=== PATIENT | female | born 1990 | race American Indian/Alaskan Native ===

== ENCOUNTER 2018-10-11 00:23 | Emergency (ER) | payer BC ==
[2018-10-11 00:29] VITALS: BP 117/82
[2018-10-11] MEDS ORDERED: DILAUDID IV ONE (01:09)
[2018-10-11 01:15] LABS: Hemoglobin 13.3 gm/dl (10.1-14.3); Mean Corpuscular HGB Conc 34 % (30-34); Mean Corpuscular Volume 91 fl (79-97); Platelet Count 396 K/mm3 (140-440); Red Blood Count 4.29 M/mm3 (3.65-5.03); Red Cell Distribution Width 14.1 % (13.2-15.2)
--- NOTE | 2018-10-11 01:15 | Emergency Department Report ---
ED General Adult HPI - General Chief complaint: Abdominal Pain Stated complaint: ABD PAIN Time Seen by Provider: 10/11/18 00:50 Source: patient, RN notes reviewed, old records reviewed Mode of arrival: Ambulatory Limitations: No Limitations - History of Present Illness Initial comments: This is a 27-year-old female. The patient is not known to this provider previously. Her past medical history includes chronic umbilical hernia, ascites, endometriosis. She reports that she saw her private outpatient [employer] doctor a few days ago, and was referred to an outpatient endometriosis specialist. The patient reports that she is taking multiple control tablets for her endometriosis, unfortunately, without much success for symptom control. She reports endometriosis tissue has migrated into her chronic umbilical hernia. She presents today with an exacerbation of her chronic endometriosis pain. She has pain in her lower back, and lower abdominal region. There is positive nausea but no vomiting. There are no urinary symptoms. No fevers. No cough. She reports that typically her symptoms are exacerbated with tactile heat, and occasionally strenuous physical labor. She reports that she has a do a lot of heavy lifting yesterday at work. She also reports a lot of anxiety. -: Gradual, hour(s) Location: back, abdomen Quality: aching Consistency: other Improves with: medication, rest Worsens with: movement, other - Related Data Previous Rx's Medication Instructions Recorded Last Taken Type Ondansetron [Zofran ODT TAB] 4 mg PO Q8HR PRN #10 tab.rapdis 10/11/18 Unknown Rx oxyCODONE /ACETAMINOPHEN [Percocet 1 tab PO Q6HR PRN #10 tablet 10/11/18 Unknown Rx 5/325 mg] Allergies Allergy/AdvReac Type Severity Reaction Status Date / Time No Known Allergies Allergy Verified 03/12/18 12:46 ED Review of Systems ROS: Stated complaint: ABD PAIN Other details as noted in HPI Constitutional: denies: fever Eyes: denies: eye discharge ENT: denies: epistaxis Respiratory: denies: cough Cardiovascular: denies: chest pain Gastrointestinal: abdominal pain Genitourinary: denies: dysuria Musculoskeletal: back pain Skin: denies: lesions Neurological: weakness Psychiatric: anxiety ED Past Medical Hx - Past Medical History Previous Medical History?: Yes Additional medical history: endometriosis,umbilical hernia, Ascites - Surgical History Past Surgical History?: Yes Additional Surgical History: right ovary and fallopian tube, parasenthesis - Social History Smoking Status: Never Smoker Substance Use Type: None - Medications Home Medications: Home Medications Medication Instructions Recorded Confirmed Last Taken Type Ondansetron [Zofran ODT TAB] 4 mg PO Q8HR PRN #10 tab.rapdis 10/11/18 Unknown Rx oxyCODONE /ACETAMINOPHEN [Percocet 1 tab PO Q6HR PRN #10 tablet 10/11/18 Unknown Rx 5/325 mg] ED Physical Exam - General Limitations: No Limitations General appearance: alert, anxious, in distress - Head Head exam: Present: atraumatic, normocephalic - Eye Eye exam: Present: normal appearance, EOMI. Absent: nystagmus - ENT ENT exam: Present: normal exam, normal orophraynx, mucous membranes moist, normal external ear exam - Neck Neck exam: Present: normal inspection, full ROM. Absent: tenderness, meningismus - Respiratory Respiratory exam: Present: normal lung sounds bilaterally. Absent: respiratory distress - Cardiovascular Cardiovascular Exam: Present: regular rate, normal rhythm, normal heart sounds. Absent: bradycardia, tachycardia, irregular rhythm, systolic murmur, diastolic murmur, rubs, gallop - GI/Abdominal GI/Abdominal exam: Present: soft, distended (ascites noted. The patient states this is chronic.), tenderness, hernia (there is an umbilical hernia. There is indurated tissue which the patient states is chronic and the umbilical hernia. There is no redness, pus or streaking.). Absent: guarding, rebound, rigid, pulsatile mass - Extremities Exam Extremities exam: Present: normal inspection, full ROM, other (2+ pulses noted in the bilateral upper, lower extremities. Compartments soft. No long bony tenderness. The pelvis is stable.). Absent: pedal edema, joint swelling, calf tenderness - Back Exam Back exam: Present: normal inspection, full ROM. Absent: tenderness, CVA tenderness (R), CVA tenderness (L), paraspinal tenderness, vertebral tenderness - Neurological Exam Neurological exam: Present: alert, other (Extraocular movements intact. Tongue midline. No facial droop. Facial sensation intact to light touch in the V1, V2, V3 distribution bilaterally. 5 and 5 strength in 4 extremities.. Sensation is intact to light touch in 4 extremities.). Absent: motor sensory deficit - Psychiatric Psychiatric exam: Present: anxious - Skin Skin exam: Present: warm, other (hyperpigmented tissue noted in the umbilical region. Patient states this is chronic.) ED Course Vital Signs 10/11/18 10/11/18 10/11/18 00:28 00:42 01:15 Temperature 98.9 F 97.9 F Pulse Rate 112 H 88 Respiratory 20 18 22 Rate Blood Pressure 117/82 117/82 O2 Sat by Pulse 95 Oximetry 10/11/18 10/11/18 10/11/18 01:29 01:31 01:45 Temperature Pulse Rate 99 H 83 Respiratory 18 11 L 18 Rate Blood Pressure O2 Sat by Pulse 100 99 Oximetry 10/11/18 10/11/18 10/11/18 02:01 02:15 02:31 Temperature Pulse Rate 98 H 86 87 Respiratory 25 H 23 Rate Blood Pressure O2 Sat by Pulse 96 99 99 Oximetry - Reevaluation(s) Reevaluation #1: 10/11/18 02:10 Differential diagnosis, including not limited to: Endometriosis pain, chronic umbilical hernia, chronic ascites, obstruction Assessment and plan: 27-year-old female with acute on chronic endometriosis associated pain. The patient is afebrile with reassuring vital signs. She states her symptoms today are consistent with prior exacerbations of endometriosis pain. She has follow-up with an outpatient endometriosis specialist. Laboratory studies reviewed. CT scan of the abdomen and pelvis performed and interpretation is pending. We will reassess after data points have resulted. Reevaluation #2: 10/11/18 02:56 CT scan of the abdomen and pelvis reviewed and appreciated. The patient is reassessed. She states she feels 100% better. Do not suspect spontaneous bacterial peritonitis given lack of fever, leukocytosis, lack of diffuse abdominal tenderness, and the patient's offer history. Patient states she is reliable to follow-up with her outpatient endometriosis specialist. We will discharge the patient at this time. She is watching videos on her cell telephone, and endorses complete resolution of her symptoms, and readiness for discharge. ED Medical Decision Making - Lab Data Result diagrams: 10/11/18 00:48 10/11/18 00:48 Vital Signs 10/11/18 10/11/18 10/11/18 00:28 00:42 01:29 Temperature 98.9 F 97.9 F Pulse Rate 112 H Respiratory 20 18 18 Rate Blood Pressure 117/82 117/82 O2 Sat by Pulse 95 Oximetry Lab Results 10/11/18 10/11/18 10/11/18 Range/Units 00:48 00:48 00:48 WBC 5.1 (4.5-11.0) K/mm3 RBC 4.29 (3.65-5.03) M/mm3 Hgb 13.3 (10.1-14.3) gm/dl Hct 39.0 (30.3-42.9) % MCV 91 (79-97) fl MCH 31 (28-32) pg MCHC 34 (30-34) % RDW 14.1 (13.2-15.2) % Plt Count 396 (140-440) K/mm3 PT (12.2-14.9) Sec. INR (0.87-1.13) Sodium 137 (137-145) mmol/L Potassium 3.7 (3.6-5.0) mmol/L Chloride 102.0 (98-107) mmol/L Carbon Dioxide 22 (22-30) mmol/L Anion Gap 17 mmol/L BUN 13 (7-17) mg/dL Creatinine 0.6 L (0.7-1.2) mg/dL Estimated GFR > 60 ml/min BUN/Creatinine Ratio 22 % Glucose 79 (65-100) mg/dL Calcium 9.8 (8.4-10.2) mg/dL Magnesium 2.10 (1.7-2.3) mg/dL Total Bilirubin 0.40 (0.1-1.2) mg/dL AST 18 (5-40) units/L ALT 23 (7-56) units/L Alkaline Phosphatase 54 (35-129) units/L Total Creatine Kinase 96 (30-135) units/L Total Protein 8.3 H (6.3-8.2) g/dL Albumin 4.7 (3.9-5) g/dL Albumin/Globulin Ratio 1.3 % HCG, Quant (0-4) mIU/mL 10/11/18 10/11/18 Range/Units 00:48 01:13 WBC (4.5-11.0) K/mm3 RBC (3.65-5.03) M/mm3 Hgb (10.1-14.3) gm/dl Hct (30.3-42.9) % MCV (79-97) fl MCH (28-32) pg MCHC (30-34) % RDW (13.2-15.2) % Plt Count (140-440) K/mm3 PT 12.8 (12.2-14.9) Sec. INR 0.99 (0.87-1.13) Sodium (137-145) mmol/L Potassium (3.6-5.0) mmol/L Chloride (98-107) mmol/L Carbon Dioxide (22-30) mmol/L Anion Gap mmol/L BUN (7-17) mg/dL Creatinine (0.7-1.2) mg/dL Estimated GFR ml/min BUN/Creatinine Ratio % Glucose (65-100) mg/dL Calcium (8.4-10.2) mg/dL Magnesium (1.7-2.3) mg/dL Total Bilirubin (0.1-1.2) mg/dL AST (5-40) units/L ALT (7-56) units/L Alkaline Phosphatase (35-129) units/L Total Creatine Kinase (30-135) units/L Total Protein (6.3-8.2) g/dL Albumin (3.9-5) g/dL Albumin/Globulin Ratio % HCG, Quant < 2 (0-4) mIU/mL - Radiology Data Radiology results: pending, report reviewed, [place] [address] Cat Scan Report Signed Patient: JEANNE NOLASCO MR#: [id number] : 1990 Acct:[id number] Age/Sex: 27 / F ADM Date: 10/11/18 Loc: ED Attending Dr: Ordering Physician: DEEP HUMPHREY MD Date of Service: 10/11/18 Procedure(s): CT abdomen pelvis w con Accession Number(s): [id number] cc: DEEP HUMPHREY MD CT abdomen pelvis w con INDICATION: abd pain, endometriosis pain. TECHNIQUE: All CT scans at this location are performed using the following dose modulation technique: Automated exposure control. CONTRAST: Omnipaque 300, 100 cc IV injection. COMPARISON: None available. CT abdomen: Evaluation the parenchymal organs demonstrates diffuse fatty infiltration of the liver. The remaining parenchymal organs are unremarkable. There is severe ascites. The bowel is not dilated or thickened. Focal soft tissue thickening is seen along the superior aspect of the umbilicus measuring 3.7 x 1.9 cm (series 2, image 134). CT PELVIS: Negative for pelvic mass, fluid or inflammation. Unusual linear soft tissue and adjacent soft tissue thickening is seen adjacent to the left adnexa. IMPRESSION: 1. Severe ascites. 2. Fatty liver. 3. Soft tissue thickening at the umbilicus and unusual soft tissue the left pelvis are nonspecific but could represent endometrial implants. Signer Name: Asif Mccabe MD Signed: 10/11/2018 2:44 AM Workstation Name: [id number] Transcribed By: KRISHNA Dictated By: Asif Mccabe MD Electronically Authenticated By: Asif Mccabe MD Signed Date/Time: 10/11/18 0246 Critical care attestation.: If time is entered above; I have spent that time in minutes in the direct care of this critically ill patient, excluding procedure time. ED Disposition Clinical Impression: Endometriosis Ascites Qualifiers: Ascites type: other type Qualified Code(s): R18.8 - Other ascites Disposition: DC-01 TO HOME OR SELFCARE Is pt being admited?: No Does the pt Need Aspirin: No Condition: Stable Instructions: Ascites (ED), Endometriosis (ED) Additional Instructions: Rest, avoid heavy lifting, and avoid strenuous physical activities. Take the pain medication, nausea medication as needed/directed. Follow up with her endometriosis specialist within the next 7-10 days. Follow up with her primary care doctor or beef farmer for abdominal ascites/fluid in the abdominal cavity, within the next 3-4 weeks. Return to the emergency room right away or projectile vomiting, change in mental status, confusion, inability to tolerate liquid feeds, new, worsening or different symptoms not present on the initial emergency room evaluation. Referrals: [facility] [Provider Group] - as needed [facility] [Provider Group] - as needed
[2018-10-11 01:29] LABS: Alanine Aminotransferase 23 units/L (7-56); Albumin 4.7 g/dL (3.9-5); BUN/Creatinine Ratio 22; Blood Urea Nitrogen 13 mg/dL (7-17); Calcium 9.8 mg/dL (8.4-10.2); Hemolysis Index 10
[2018-10-11 01:46] LABS: INR 0.99 (0.87-1.13)
--- NOTE | 2018-10-11 02:49 | Cat Scan Report ---
CT abdomen pelvis w con INDICATION: abd pain, endometriosis pain. TECHNIQUE: All CT scans at this location are performed using the following dose modulation technique: Automated exposure control. CONTRAST: Omnipaque 300, 100 cc IV injection. COMPARISON: None available. CT abdomen: Evaluation the parenchymal organs demonstrates diffuse fatty infiltration of the liver. T he remaining parenchymal organs are unremarkable. There is severe ascites. The bowel is not dilated or thickened. Focal soft tissue thickening is seen along the superior aspect of the umbilicus measuring 3.7 x 1.9 c m (series 2, image 134). CT PELVIS: Negative for pelvic mass, fluid or inflammation. Unusual linear soft tissue and adjacent s oft tissue thickening is seen adjacent to the left adnexa. IMPRESSION: 1. Severe ascites. 2. Fatty liver. 3. Soft tissue thickening at the umbilicus and unusual soft tissue the left pelvis are nonspecific bu t could represent endometrial implants. Signer Name: Asif Mccabe MD Signed: 10/11/2018 2:44 AM Workstation Name: [id number]
== END 2018-10-11 03:39 | disposition home or self-care (01) ==
LOC: ED 00:23
DX: N80.9 Endometriosis, unspecified (principal); R18.8 Other ascites; Z98.890 Other specified postprocedural states; Z79.899 Other long term (current) drug therapy
CPT/HCPCS: 36415; 74177; 80053; 82550; 83735; 84702; 85027; 85610; 96374; 99284; J1170; Q9967

== ENCOUNTER 2018-10-18 00:27 | Inpatient (IN) | payer BC ==
[2018-10-18] MEDS ORDERED: TORADOL IV ONE (02:44)
[2018-10-18] MEDS ORDERED: MORPHINE IV ONE ×2 (02:44→05:14)
[2018-10-18] MEDS ORDERED: ZOFRAN IV ONE ×2 (02:44→05:26)
[2018-10-18 03:46] LABS: Hematocrit 38.6 % (30.3-42.9); Hemoglobin 13.4 gm/dl (10.1-14.3); Mean Corpuscular HGB Conc 35 % (30-34); Mean Corpuscular Volume 90 fl (79-97); Platelet Count 324 K/mm3 (140-440); Red Blood Count 4.29 M/mm3 (3.65-5.03); Red Cell Distribution Width 14.1 % (13.2-15.2)
[2018-10-18 03:52] LABS: Alanine Aminotransferase 14 units/L (7-56); Albumin 4.8 g/dL (3.9-5); BUN/Creatinine Ratio 17; Blood Urea Nitrogen 10 mg/dL (7-17); Calcium 9.6 mg/dL (8.4-10.2); Hemolysis Index 9
[2018-10-18 04:36] LABS: Basophils % (Manual) 0 % (0.0-1.8); Total Cells Counted 100
[2018-10-18 04:37] LABS: Large Platelets 1+; Platelet Estimate Consistent w Auto; RBC Morphology Normal
[2018-10-18 04:48] LABS: Bilirubin,Urine NEG (Negative); Blood,Urine LG (Negative); Color,Urine Yellow (Yellow); Protein,Urine <15 mg/dL mg/dL (Negative); Urobilinogen,Urine < 2.0 mg/dL (<2.0)
[2018-10-18 04:50] LABS: RBC,Urine > 182.0 /HPF (0.0-6.0)
--- NOTE | 2018-10-18 05:05 | Cat Scan Report ---
CT ABDOMEN AND PELVIS WITH CONTRAST INDICATION: MAIN: worsening ascities, pain and bleeding at umbilicus. 100 ML OMNIPAQUE 300. TECHNIQUE: Axial CT images were obtained through the abdomen and pelvis after 100 cc Omnipaque [address] scans at this location are performed using CT dose reduction for ALARA by means of automated exposure control. COMPARISON: None available. FINDINGS: LOWER CHEST: Linear bibasilar scarring, unchanged LIVER: Mild decreased attenuation characteristic for steatosis. GALLBLADDER: No significant abnormality. BILE DUCTS: No significant abnormality. PANCREAS: No significant abnormality. SPLEEN: No significant abnormality. ADRENALS: No significant abnormality. RIGHT KIDNEY and URETER: No significant abnormality. LEFT KIDNEY and URETER: No significant abnormality. STOMACH and SMALL BOWEL: No significant abnormality. COLON: No significant abnormality. APPENDIX: No significant abnormality. PERITONEUM: Massive amount of ascites, unchanged. Focal soft tissue masslike thickening near umbilicu s again measures 3.5 cm transversely image 133, unchanged No free air. No fluid collection. LYMPH NODES: No significant adenopathy. Ill-defined masslike soft tissue beginning near left adnexa r egion within the left hemipelvis measuring 2.4 cm in diameter image 158, unchanged. AORTA and ARTERIES: No significant abnormality. IVC and VEINS: No significant abnormality. URINARY BLADDER: No significant abnormality. REPRODUCTIVE ORGANS: No significant abnormality. ADDITIONAL FINDINGS: None. SKELETAL SYSTEM: No significant abnormality. IMPRESSION: 1. Massive amount of abdominal ascites, unchanged with focal masslike soft tissue thickening in the l eft periumbilical region suggestive for peritoneal carcinomatosis. Paracentesis with cytology is aureliano mmended. 2. Probable left ovarian mass/soft tissue thickening within the left hemipelvis worrisome for ovarian neoplasm, unchanged. Signer Name: Zen Kingston MD Signed: 10/18/2018 5:00 AM Workstation Name: [id number]
[2018-10-18] MEDS ORDERED: ZOFRAN ONE (05:21)
--- NOTE | 2018-10-18 05:31 | Emergency Department Report ---
ED Abdominal Pain HPI - General Chief Complaint: Abdominal Pain Stated Complaint: PELVIC PAIN Time Seen by Provider: 10/18/18 02:24 Source: patient Mode of arrival: Ambulatory Limitations: No Limitations - History of Present Illness Initial Comments: Patient is a 27-year-old female with a past medical history of probable endometriosis still undergoing treatment and diagnostic tests who states that she also has had multiple paracenteses performed secondary to ascites. Patient states she feels as though she is at the point where she needs to have fluid drained again. Patient says some increased abdominal distention to the point where her umbilicus is more distended and there is a small pinpoint area that is now bleeding. Patient states the pain is 8 out of 10 in severity and is aching and throbbing. She has some shortness of breath and a tight sensation in abdomen. Patient denies fevers chills nausea vomiting at this time . Severity scale (0 -10): 10 - Related Data Previous Rx's Medication Instructions Recorded Last Taken Type Ondansetron [Zofran ODT TAB] 4 mg PO Q8HR PRN #10 tab.rapdis 10/11/18 Unknown Rx oxyCODONE /ACETAMINOPHEN [Percocet 1 tab PO Q6HR PRN #10 tablet 10/11/18 Unknown Rx 5/325 mg] Allergies Allergy/AdvReac Type Severity Reaction Status Date / Time No Known Allergies Allergy Verified 03/12/18 12:46 ED Review of Systems ROS: Stated complaint: PELVIC PAIN Other details as noted in HPI Comment: All other systems reviewed and negative ED Past Medical Hx - Past Medical History Previous Medical History?: Yes Additional medical history: endometriosis,umbilical hernia, Ascites - Surgical History Past Surgical History?: Yes Additional Surgical History: right ovary and fallopian tube, parasenthesis - Social History Smoking Status: Never Smoker - Medications Home Medications: Home Medications Medication Instructions Recorded Confirmed Last Taken Type Ondansetron [Zofran ODT TAB] 4 mg PO Q8HR PRN #10 tab.rapdis 10/11/18 Unknown Rx oxyCODONE /ACETAMINOPHEN [Percocet 1 tab PO Q6HR PRN #10 tablet 10/11/18 Unknown Rx 5/325 mg] ED Physical Exam - General Limitations: No Limitations General appearance: alert, in no apparent distress - Head Head exam: Present: atraumatic, normocephalic - Eye Eye exam: Present: normal appearance - ENT ENT exam: Present: mucous membranes moist - Neck Neck exam: Present: normal inspection - Respiratory Respiratory exam: Present: normal lung sounds bilaterally. Absent: respiratory distress, wheezes, rales, rhonchi, stridor - Cardiovascular Cardiovascular Exam: Present: regular rate, normal rhythm, normal heart sounds. Absent: systolic murmur, diastolic murmur, rubs, gallop - GI/Abdominal GI/Abdominal exam: Present: soft, distended, normal bowel sounds, hernia. Absent: tenderness, guarding, rebound - Extremities Exam Extremities exam: Present: normal inspection - Back Exam Back exam: Present: normal inspection - Neurological Exam Neurological exam: Present: alert, oriented X3 - Psychiatric Psychiatric exam: Present: normal affect, normal mood - Skin Skin exam: Present: warm, dry, intact, normal color. Absent: rash ED Course Vital Signs 10/18/18 10/18/18 10/18/18 01:15 02:20 02:23 Temperature 98.6 F 98.1 F Pulse Rate 84 77 Respiratory 16 26 H Rate Blood Pressure 130/89 Blood Pressure 126/91 [Left] O2 Sat by Pulse 94 99 99 Oximetry 10/18/18 10/18/18 10/18/18 02:30 02:45 03:01 Temperature Pulse Rate 78 81 84 Respiratory 20 13 Rate Blood Pressure 129/90 126/91 126/91 Blood Pressure [Left] O2 Sat by Pulse 100 100 99 Oximetry 10/18/18 10/18/18 10/18/18 03:15 03:30 03:45 Temperature Pulse Rate 76 71 70 Respiratory 12 19 16 Rate Blood Pressure 126/91 120/83 120/83 Blood Pressure [Left] O2 Sat by Pulse 100 98 99 Oximetry 10/18/18 10/18/18 04:01 04:15 Temperature Pulse Rate 71 75 Respiratory 18 18 Rate Blood Pressure 120/83 113/78 Blood Pressure [Left] O2 Sat by Pulse 97 100 Oximetry ED Medical Decision Making - Lab Data Result diagrams: 10/18/18 03:12 10/18/18 03:12 Lab Results 10/18/18 10/18/18 10/18/18 Range/Units 03:12 03:12 03:12 WBC 4.1 L (4.5-11.0) K/mm3 RBC 4.29 (3.65-5.03) M/mm3 Hgb 13.4 (10.1-14.3) gm/dl Hct 38.6 (30.3-42.9) % MCV 90 (79-97) fl MCH 31 (28-32) pg MCHC 35 H (30-34) % RDW 14.1 (13.2-15.2) % Plt Count 324 (140-440) K/mm3 Lymph % (Auto) Freelance Makeup Artist Add Manual Diff Complete Total Counted 100 Seg Neutrophils % Freelance Makeup Artist Seg Neuts % (Manual) 34.0 L (40.0-70.0) % Band Neutrophils % 0 % Lymphocytes % (Manual) 56.0 H (13.4-35.0) % Reactive Lymphs % (Man) 0 % Monocytes % (Manual) 7.0 (0.0-7.3) % Eosinophils % (Manual) 3.0 (0.0-4.3) % Basophils % (Manual) 0 (0.0-1.8) % Metamyelocytes % 0 % Myelocytes % 0 % Promyelocytes % 0 % Blast Cells % 0 % Nucleated RBC % Not Reportable Seg Neutrophils # Man 1.4 L (1.8-7.7) K/mm3 Band Neutrophils # 0.0 K/mm3 Lymphocytes # (Manual) 2.3 (1.2-5.4) K/mm3 Abs React Lymphs (Man) 0.0 K/mm3 Monocytes # (Manual) 0.3 (0.0-0.8) K/mm3 Eosinophils # (Manual) 0.1 (0.0-0.4) K/mm3 Basophils # (Manual) 0.0 (0.0-0.1) K/mm3 Metamyelocytes # 0.0 K/mm3 Myelocytes # 0.0 K/mm3 Promyelocytes # 0.0 K/mm3 Blast Cells # 0.0 K/mm3 WBC Morphology Not Reportable Hypersegmented Neuts Not Reportable Hyposegmented Neuts Not Reportable Hypogranular Neuts Not Reportable Smudge Cells Not Reportable Toxic Granulation Not Reportable Toxic Vacuolation Not Reportable Dohle Bodies Not Reportable Pelger-Huet Anomaly Not Reportable Jorge Luis Rods Not Reportable Platelet Estimate Consistent w auto Clumped Platelets Not Reportable Plt Clumps, EDTA Not Reportable Large Platelets 1+ Giant Platelets Not Reportable Platelet Satelliting Not Reportable Plt Morphology Comment Not Reportable RBC Morphology Normal Dimorphic RBCs Not Reportable Polychromasia Not Reportable Hypochromasia Not Reportable Poikilocytosis Not Reportable Anisocytosis Not Reportable Microcytosis Not Reportable Macrocytosis Not Reportable Spherocytes Not Reportable Pappenheimer Bodies Not Reportable Sickle Cells Not Reportable Target Cells Not Reportable Tear Drop Cells Not Reportable Ovalocytes Not Reportable Helmet Cells Not Reportable Petersen-[place] Bodies Not Reportable [place] Rings Not Reportable [place] Cells Not Reportable Bite Cells Not Reportable Crenated Cell Not Reportable Elliptocytes Not Reportable Acanthocytes (Spur) Not Reportable Rouleaux Not Reportable Hemoglobin C Crystals Not Reportable Schistocytes Not Reportable Malaria parasites Not Reportable [place] Bodies Not Reportable Hem Pathologist Commnt No Sodium 138 (137-145) mmol/L Potassium 3.7 (3.6-5.0) mmol/L Chloride 101.3 (98-107) mmol/L Carbon Dioxide 25 (22-30) mmol/L Anion Gap 15 mmol/L BUN 10 (7-17) mg/dL Creatinine 0.6 L (0.7-1.2) mg/dL Estimated GFR > 60 ml/min BUN/Creatinine Ratio 17 % Glucose 78 (65-100) mg/dL Calcium 9.6 (8.4-10.2) mg/dL Total Bilirubin 0.20 (0.1-1.2) mg/dL AST 19 (5-40) units/L ALT 14 (7-56) units/L Alkaline Phosphatase 55 (35-129) units/L Total Protein 8.3 H (6.3-8.2) g/dL Albumin 4.8 (3.9-5) g/dL Albumin/Globulin Ratio 1.4 % Lipase (13-60) units/L HCG, Qual Negative (Negative) Urine Color (Yellow) Urine Turbidity (Clear) Urine pH (5.0-7.0) Ur Specific [place] (1.003-1.030) Urine Protein (Negative) mg/dL Urine Glucose (UA) (Negative) mg/dL Urine Ketones (Negative) mg/dL Urine Blood (Negative) Urine Nitrite (Negative) Urine Bilirubin (Negative) Urine Urobilinogen (<2.0) mg/dL Ur Leukocyte Esterase (Negative) Urine WBC (Auto) (0.0-6.0) /HPF Urine RBC (Auto) (0.0-6.0) /HPF U Epithel Cells (Auto) (0-13.0) /HPF 10/18/18 10/18/18 Range/Units 03:12 03:30 WBC (4.5-11.0) K/mm3 RBC (3.65-5.03) M/mm3 Hgb (10.1-14.3) gm/dl Hct (30.3-42.9) % MCV (79-97) fl MCH (28-32) pg MCHC (30-34) % RDW (13.2-15.2) % Plt Count (140-440) K/mm3 Lymph % (Auto) Add Manual Diff Total Counted Seg Neutrophils % Seg Neuts % (Manual) (40.0-70.0) % Band Neutrophils % % Lymphocytes % (Manual) (13.4-35.0) % Reactive Lymphs % (Man) % Monocytes % (Manual) (0.0-7.3) % Eosinophils % (Manual) (0.0-4.3) % Basophils % (Manual) (0.0-1.8) % Metamyelocytes % % Myelocytes % % Promyelocytes % % Blast Cells % % Nucleated RBC % Seg Neutrophils # Man (1.8-7.7) K/mm3 Band Neutrophils # K/mm3 Lymphocytes # (Manual) (1.2-5.4) K/mm3 Abs React Lymphs (Man) K/mm3 Monocytes # (Manual) (0.0-0.8) K/mm3 Eosinophils # (Manual) (0.0-0.4) K/mm3 Basophils # (Manual) (0.0-0.1) K/mm3 Metamyelocytes # K/mm3 Myelocytes # K/mm3 Promyelocytes # K/mm3 Blast Cells # K/mm3 WBC Morphology Hypersegmented Neuts Hyposegmented Neuts Hypogranular Neuts Smudge Cells Toxic Granulation Toxic Vacuolation Dohle Bodies Pelger-Huet Anomaly Jorge Luis Rods Platelet Estimate Clumped Platelets Plt Clumps, EDTA Large Platelets Giant Platelets Platelet Satelliting Plt Morphology Comment RBC Morphology Dimorphic RBCs Polychromasia Hypochromasia Poikilocytosis Anisocytosis Microcytosis Macrocytosis Spherocytes Pappenheimer Bodies Sickle Cells Target Cells Tear Drop Cells Ovalocytes Helmet Cells Petersen-Moraga Bodies [place] Rings [place] Cells Bite Cells Crenated Cell Elliptocytes Acanthocytes (Spur) Rouleaux Hemoglobin C Crystals Schistocytes Malaria parasites [place] Bodies Hem Pathologist Commnt Sodium (137-145) mmol/L Potassium (3.6-5.0) mmol/L Chloride (98-107) mmol/L Carbon Dioxide (22-30) mmol/L Anion Gap mmol/L BUN (7-17) mg/dL Creatinine (0.7-1.2) mg/dL Estimated GFR ml/min BUN/Creatinine Ratio % Glucose (65-100) mg/dL Calcium (8.4-10.2) mg/dL Total Bilirubin (0.1-1.2) mg/dL AST (5-40) units/L ALT (7-56) units/L Alkaline Phosphatase (35-129) units/L Total Protein (6.3-8.2) g/dL Albumin (3.9-5) g/dL Albumin/Globulin Ratio % Lipase 49 (13-60) units/L HCG, Qual (Negative) Urine Color Yellow (Yellow) Urine Turbidity Slightly-cloudy (Clear) Urine pH 7.0 (5.0-7.0) Ur Specific [place] 1.016 (1.003-1.030) Urine Protein <15 mg/dl (Negative) mg/dL Urine Glucose (UA) Neg (Negative) mg/dL Urine Ketones Neg (Negative) mg/dL Urine Blood Lg (Negative) Urine Nitrite Neg (Negative) Urine Bilirubin Neg (Negative) Urine Urobilinogen < 2.0 (<2.0) mg/dL Ur Leukocyte Esterase Sm (Negative) Urine WBC (Auto) 7.0 H (0.0-6.0) /HPF Urine RBC (Auto) > 182.0 (0.0-6.0) /HPF U Epithel Cells (Auto) 10.0 (0-13.0) /HPF - Radiology Data [facility] [address] [place] [address] Cat Scan Report Signed Patient: JEANNE NOLASCO MR#: [id number] : 1990 Acct:[id number] Age/Sex: 27 / F ADM Date: 10/18/18 Loc: ED Attending Dr: Ordering Physician: SHERRY GALLEGOS MD Date of Service: 10/18/18 Procedure(s): CT abdomen pelvis w con Accession Number(s): [id number] cc: SHERRY GALLEGOS MD CT ABDOMEN AND PELVIS WITH CONTRAST INDICATION: MAIN: worsening ascities, pain and bleeding at umbilicus. 100 ML OMNIPAQUE 300. TECHNIQUE: Axial CT images were obtained through the abdomen and pelvis after 100 cc Omnipaque [address] scans at this location are performed using CT dose reduction for ALARA by means of automated exposure control. COMPARISON: None available. FINDINGS: LOWER CHEST: Linear bibasilar scarring, unchanged LIVER: Mild decreased attenuation characteristic for steatosis. GALLBLADDER: No significant abnormality. BILE DUCTS: No significant abnormality. PANCREAS: No significant abnormality. SPLEEN: No significant abnormality. ADRENALS: No significant abnormality. RIGHT KIDNEY and URETER: No significant abnormality. LEFT KIDNEY and URETER: No significant abnormality. STOMACH and SMALL BOWEL: No significant abnormality. COLON: No significant abnormality. APPENDIX: No significant abnormality. PERITONEUM: Massive amount of ascites, unchanged. Focal soft tissue masslike thickening near umbilicus again measures 3.5 cm transversely image 133, unchanged No free air. No fluid collection. LYMPH NODES: No significant adenopathy. Ill-defined masslike soft tissue beginning near left adnexa region within the left hemipelvis measuring 2.4 cm in diameter image 158, unchanged. AORTA and ARTERIES: No significant abnormality. IVC and VEINS: No significant abnormality. URINARY BLADDER: No significant abnormality. REPRODUCTIVE ORGANS: No significant abnormality. ADDITIONAL FINDINGS: None. SKELETAL SYSTEM: No significant abnormality. IMPRESSION: 1. Massive amount of abdominal ascites, unchanged with focal masslike soft tissue thickening in the left periumbilical region suggestive for peritoneal carcinomatosis. Paracentesis with cytology is recommended. 2. Probable left ovarian mass/soft tissue thickening within the left hemipelvis worrisome for ovarian neoplasm, unchanged. Signer Name: Zen Kingston MD Signed: 10/18/2018 5:00 AM Workstation Name: [id number] - Medical Decision Making Patient has some abdominal distention and needs a therapeutic paracentesis. She'll be admitted at this time. CT does show a new finding of a masslike lesion at the left adnexa. Patient likely will need cytology of fluid after her paracentesis. Critical care attestation.: If time is entered above; I have spent that time in minutes in the direct care of this critically ill patient, excluding procedure time. ED Disposition Clinical Impression: Endometriosis Ascites Qualifiers: Ascites type: other type Qualified Code(s): R18.8 - Other ascites Disposition: OP ADMIT IP TO THIS HOSP Is pt being admited?: Yes Does the pt Need Aspirin: No Condition: Stable Time of Disposition: 05:31
[2018-10-18] MEDS ORDERED: ZOFRAN IV PRN (06:24)
[2018-10-18] MEDS ORDERED: TYLENOL PO PRN (06:24)
--- NOTE | 2018-10-18 08:10 | History and Physical Report ---
CHIEF COMPLAINT: Abdominal pain. Other complaints include abdominal swelling. HISTORY OF PRESENTING ILLNESS: The patient is a 27-year-old female who has been having recurrent abdominal swelling with ascites that has been attributed to endometriosis and the patient has had paracentesis done in the past because of this recurrent ascites and said that this has been going on for about 3 years, but the pain became increasingly worse with swelling in the last few days. There is no history of fever and no history of chills, but the patient admitted to having drainage from the umbilical area, and denied any history of nausea, vomiting, or diarrhea. There is also no history of vaginal bleeding; however, the patient stated that she has been having irregular menstrual cycle because of this condition. PAST MEDICAL HISTORY: Pertinent for recurrent ascites, endometriosis, and umbilical hernia. PAST SURGICAL HISTORY: Pertinent for paracentesis. FAMILY HISTORY: Noncontributory. SOCIAL HISTORY: The patient does not smoke, does not drink alcohol, and does not use illicit drug. MEDICATIONS: The patient is on Percocet 5/325 and Zofran under the tongue 4 mg every 8 hours for nausea and vomiting. ALLERGIES: There are no known drug allergies. REVIEW OF SYSTEMS: CONSTITUTIONAL: There is no fever, no chills, no diaphoresis. HEENT: There is no headache or sore throat. CARDIOVASCULAR SYSTEM: There is no chest pain or orthopnea. RESPIRATORY SYSTEM: There is no shortness of breath or cough. GASTROINTESTINAL SYSTEM: There is abdominal pain, abdominal swelling, but no constipation, no diarrhea, no nausea or vomiting. NEUROLOGICAL SYSTEM: There is no dizziness, no altered mental status. MUSCULOSKELETAL SYSTEM: There is no joint pain or swelling. DERMATOLOGICAL SYSTEM: There is no skin rash or itching. GENITOURINARY SYSTEM: There is no dysuria, hematuria, or flank pain. Rest of system review is normal. PHYSICAL EXAMINATION: GENERAL: At the time of exam, the patient was found to be alert, oriented x 3, and in [id number] distress due to abdominal swelling. VITAL SIGNS: At the initial time of presentation, showed temperature of 98.6 degrees Fahrenheit, pulse of 84, respirations 16, blood pressure 130/89, O2 sat of 94% on room air. HEENT EXAM: Showed pupils to be equal, round, reactive to light and accommodating. Extraocular muscles are intact. NECK: Neck is supple with no JVD or carotid bruit. CARDIOVASCULAR SYSTEM: Showed normal first and second heart sounds with no gallops or murmurs. RESPIRATORY SYSTEM: Showed good air entry on both sides of the lungs with no abnormal breath sounds. GASTROINTESTINAL SYSTEM: Show abdomen to be swollen and distended with prominent superficial veins, tender to touch, with no organomegaly elicited and no rigidity or rebound tenderness. There is also swelling of the umbilicus. Bowel sound is normal. NEUROLOGICAL SYSTEM: Showed no focal deficit. MUSCULOSKELETAL SYSTEM: Showed no joint swelling or tenderness. DERMATOLOGICAL SKIN: Showed no skin rash. GENITOURINARY SYSTEM: Showed no costovertebral angle tenderness. PERTINENT LABORATORY AND IMAGING STUDIES: The patient had CT of the abdomen and pelvis with contrast done that shows massive amount of abdominal ascites, unchanged with focal mass-like soft tissue thickening in the left periumbilical region suggestive of peritoneal carcinomatosis, and the radiologist said that paracentesis with cytology is recommended. There is also finding of probable left ovarian mass/soft tissue thickening within the left hemipelvis, worrisome for ovarian neoplasm, which the radiologist said, is unchanged from previous CT. Lab results, the patient's CBC showed a low white count of 4.1 with normal hemoglobin and normal hematocrit and CBC differential showed elevated lymphocyte count of 56%. The patient's chemistry was unremarkable. Urinalysis shows small urine leukocyte esterase with elevated urine wbc's of 7 and high urine rbc's of 182. DIAGNOSES: 1. Ascites. 2. Abdominal pain. 3. Ovarian mass, rule out neoplasm. 4. Urinary tract infection. PLAN OF CARE: 1. The patient will be admitted to [facility]. 2. The patient will have ultrasound-guided paracentesis, possibly done today with a fluid analysis for cytology. 3. The patient will be on IV morphine 2 mg every 3 hours as needed for pain and IV Zofran 4 mg every 8 hours as needed for nausea and vomiting. 4. The patient will be on Tylenol 650 mg by mouth every 4 hours for fever and headache. 5. The patient will be on IV Rocephin 1 gram q. 24 hours for treatment of UTI. 6. The patient will have gynecological consult with Dr. Rachel Puentes for evaluation of possible ovarian mass. ROBERTS CHAPEL# [id number] OCN/NTS
[2018-10-18] MEDS: MORPHINE IV PRN ×4 (08:31→22:43)
[2018-10-18] MEDS: ROCEPHIN/NS 1 GM/50 ML 1 GM/50 ML BAG IV SCH (09:39)
--- NOTE | 2018-10-18 11:47 | Event Note ---
Date: 10/18/18 Patient with gross ascitis from endometriosis.She has had recurrent ascitis, recurrent paracentesis, last paracentesis 1 yr ago. I have seen and examined her. For paracentesis.
--- NOTE | 2018-10-18 15:10 | Consultation ---
History of Present Illness Consult date: 10/18/18 Requesting physician: JAMIN PARTIDA Reason for consult: pelvic pain, pelvic mass, other (endometriosis) History of present illness: Pt is a 27yo BF G0 LMP 10/14/18 with a past medical history of suspected endometriosis still undergoing diagnostic tests, who states that she also has had multiple paracenteses performed secondary to recurrent ascites. She states she feels as though she is at the point where she needs to have fluid drained again. She has increased abdominal distention to the point where her umbilicus is more distended and there is a small pinpoint area that is now bleeding. She states the diagnosis of endometriosis was made upon an umbilical biopsy. The pain is 8 out of 10 in severity and is aching and throbbing. She has some shortness of breath and a tight sensation in abdomen. Patient denies fevers chills nausea vomiting at this time. Her Instructional Writer is Dr Almaraz at [facility], and she has an appointment with a Geospatial Specialist Oncologist Dr Nixon also at [facility] for next month. 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 (Right salpingoOophorectomy) Family/Genetic History: none Social history: no significant social history, single Medications and Allergies Allergies Allergy/AdvReac Type Severity Reaction Status Date / Time No Known Allergies Allergy Verified 03/12/18 12:46 Home Medications Medication Instructions Recorded Confirmed Last Taken Type Ondansetron [Zofran ODT TAB] 4 mg PO Q8HR PRN #10 tab.rapdis 10/11/18 10/18/18 Unknown Rx oxyCODONE /ACETAMINOPHEN [Percocet 1 tab PO Q6HR PRN #10 tablet 10/11/18 10/18/18 Unknown Rx 5/325 mg] Active Meds: Active Medications Acetaminophen (Tylenol) 650 mg PO Q4H PRN PRN Reason: Pain, Mild (1-3) Ceftriaxone Sodium (Rocephin/Ns 1 Gm/50 Ml) 1 gm in 50 mls @ 100 mls/hr IV Q24HR ANA; Protocol Last Admin: 10/18/18 09:39 Dose: 100 mls/hr Documented by: Morphine Sulfate (Morphine) 2 mg IV Q3H PRN PRN Reason: Pain, Moderate (4-6) Last Admin: 10/18/18 13:01 Dose: 2 mg Documented by: Ondansetron HCl (Zofran) 4 mg IV Q8H PRN PRN Reason: Nausea And Vomiting Last Admin: 10/18/18 13:07 Dose: 4 mg Documented by: Review of Systems All systems: negative - Vital Signs Vital signs: Vital Signs Temp Pulse Resp BP Pulse Ox 98.6 F 84 16 130/89 94 10/18/18 01:15 10/18/18 01:15 10/18/18 01:15 10/18/18 01:15 10/18/18 01:15 Temp Pulse Resp BP Pulse Ox 97.8 F 64 18 110/81 100 10/18/18 11:00 10/18/18 11:00 10/18/18 11:02 10/18/18 11:00 10/18/18 11:00 - Physical Exam Breasts: Positive: deferred Abdomen: Positive: tenderness, rigidity Extremities: Positive: normal Results Result Diagrams: 10/18/18 03:12 10/18/18 03:12 Abnormal lab results 10/18/18 10/18/18 10/18/18 Range/Units 03:12 03:12 03:30 WBC 4.1 L (4.5-11.0) K/mm3 MCHC 35 H (30-34) % Seg Neuts % (Manual) 34.0 L (40.0-70.0) % Lymphocytes % (Manual) 56.0 H (13.4-35.0) % Seg Neutrophils # Man 1.4 L (1.8-7.7) K/mm3 Creatinine 0.6 L (0.7-1.2) mg/dL Total Protein 8.3 H (6.3-8.2) g/dL Urine WBC (Auto) 7.0 H (0.0-6.0) /HPF All other labs normal. CT scan - pelvis: report reviewed (Left ovarian mass) Assessment and Plan - Patient Problems (1) Ascites Onset Date: 10/18/18 Current Visit: Yes Status: Acute Qualifiers: Ascites type: other type Qualified Code(s): R18.8 - Other ascites (2) Endometriosis Onset Date: 10/18/18 Current Visit: Yes Status: Acute Plan to address problem: A: Pelvic pain - most likely due to ascites Ascites - most likely from malignant source. Typically see blood from endometriosis Endometriosis P: Agree with admission for paracentesis - send to pathology for cytological studies Will need to begin treatment for endometriosis - Zoe Keep appointment with Geospatial Specialist Oncologist Obtain [id number] and follow up with me in the office for continued management
[2018-10-19] MEDS: MORPHINE IV PRN ×2 (03:00→08:49)
--- NOTE | 2018-10-19 08:38 | Progress Note ---
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 heparin subcut Full code status History Interval history: Abdominal distension Abd pain Hospitalist Physical - Physical exam Narrative exam: Gen: Not in acute distress, lying in bed, malnourished, ill looking HEENT: Normocephalic, atraumatic Neck: supple, no JVD Heart: S1 and S2 reg, no murmurs, rubs or gallop Lungs: Clear, no crackles, no wheeze Abd: soft, Gross distension, mild tender, no rebound tenderness, normal BS, Ext: No edema, clubbing or cyanosis Neuro: Awake, alert, oriented X 3, no focal neurological signs - Constitutional Vitals: Temp Pulse Resp BP Pulse Ox 97.5 F L 73 18 112/76 100 10/19/18 07:14 10/19/18 07:14 10/19/18 07:14 10/19/18 07:14 10/19/18 07:14 Results - Labs CBC & Chem 7: 10/18/18 03:12 10/18/18 03:12 Labs: Laboratory Last Values WBC 4.1 K/mm3 (4.5-11.0) L 10/18/18 03:12 RBC 4.29 M/mm3 (3.65-5.03) 10/18/18 03:12 Hgb 13.4 gm/dl (10.1-14.3) 10/18/18 03:12 Hct 38.6 % (30.3-42.9) 10/18/18 03:12 MCV 90 fl (79-97) 10/18/18 03:12 MCH 31 pg (28-32) 10/18/18 03:12 MCHC 35 % (30-34) H 10/18/18 03:12 RDW 14.1 % (13.2-15.2) 10/18/18 03:12 Plt Count 324 K/mm3 (140-440) 10/18/18 03:12 Lymph % (Auto) Dye House Vat Worker 10/18/18 03:12 Add Manual Diff Complete 10/18/18 03:12 Total Counted 100 10/18/18 03:12 Seg Neutrophils % Dye House Vat Worker 10/18/18 03:12 Seg Neuts % (Manual) 34.0 % (40.0-70.0) L 10/18/18 03:12 0 % 10/18/18 03:12 56.0 % (13.4-35.0) H 10/18/18 03:12 Reactive Lymphs % (Man) 0 % 10/18/18 03:12 7.0 % (0.0-7.3) 10/18/18 03:12 3.0 % (0.0-4.3) 10/18/18 03:12 0 % (0.0-1.8) 10/18/18 03:12 0 % 10/18/18 03:12 0 % 10/18/18 03:12 0 % 10/18/18 03:12 0 % 10/18/18 03:12 Nucleated RBC % Not Reportable 10/18/18 03:12 Seg Neutrophils # Man 1.4 K/mm3 (1.8-7.7) L 10/18/18 03:12 Band Neutrophils # 0.0 K/mm3 10/18/18 03:12 2.3 K/mm3 (1.2-5.4) 10/18/18 03:12 Abs React Lymphs (Man) 0.0 K/mm3 10/18/18 03:12 0.3 K/mm3 (0.0-0.8) 10/18/18 03:12 0.1 K/mm3 (0.0-0.4) 10/18/18 03:12 0.0 K/mm3 (0.0-0.1) 10/18/18 03:12 0.0 K/mm3 10/18/18 03:12 0.0 K/mm3 10/18/18 03:12 0.0 K/mm3 10/18/18 03:12 Blast Cells # 0.0 K/mm3 10/18/18 03:12 WBC Morphology Not Reportable 10/18/18 03:12 Hypersegmented Neuts Not Reportable 10/18/18 03:12 Hyposegmented Neuts Not Reportable 10/18/18 03:12 Hypogranular Neuts Not Reportable 10/18/18 03:12 Not Reportable 10/18/18 03:12 Not Reportable 10/18/18 03:12 Not Reportable 10/18/18 03:12 Not Reportable 10/18/18 03:12 Not Reportable 10/18/18 03:12 Not Reportable 10/18/18 03:12 Consistent w auto 10/18/18 03:12 Not Reportable 10/18/18 03:12 Plt Clumps, EDTA Not Reportable 10/18/18 03:12 1+ 10/18/18 03:12 Not Reportable 10/18/18 03:12 Not Reportable 10/18/18 03:12 Plt Morphology Comment Not Reportable 10/18/18 03:12 RBC Morphology Normal 10/18/18 03:12 Dimorphic RBCs Not Reportable 10/18/18 03:12 Not Reportable 10/18/18 03:12 Not Reportable 10/18/18 03:12 Not Reportable 10/18/18 03:12 Not Reportable 10/18/18 03:12 Not Reportable 10/18/18 03:12 Not Reportable 10/18/18 03:12 Not Reportable 10/18/18 03:12 Not Reportable 10/18/18 03:12 Not Reportable 10/18/18 03:12 Not Reportable 10/18/18 03:12 Not Reportable 10/18/18 03:12 Not Reportable 10/18/18 03:12 Not Reportable 10/18/18 03:12 Not Reportable 10/18/18 03:12 Not Reportable 10/18/18 03:12 Not Reportable 10/18/18 03:12 Not Reportable 10/18/18 03:12 Not Reportable 10/18/18 03:12 Not Reportable 10/18/18 03:12 Acanthocytes (Spur) Not Reportable 10/18/18 03:12 Rouleaux Not Reportable 10/18/18 03:12 Not Reportable 10/18/18 03:12 Not Reportable 10/18/18 03:12 Not Reportable 10/18/18 03:12 Not Reportable 10/18/18 03:12 Hem Pathologist Commnt No 10/18/18 03:12 Sodium 138 mmol/L (137-145) 10/18/18 03:12 Potassium 3.7 mmol/L (3.6-5.0) 10/18/18 03:12 Chloride 101.3 mmol/L (98-107) 10/18/18 03:12 Carbon Dioxide 25 mmol/L (22-30) 10/18/18 03:12 15 mmol/L 10/18/18 03:12 BUN 10 mg/dL (7-17) 10/18/18 03:12 0.6 mg/dL (0.7-1.2) L 10/18/18 03:12 Estimated GFR > 60 ml/min 10/18/18 03:12 17 % 10/18/18 03:12 Glucose 78 mg/dL (65-100) 10/18/18 03:12 Calcium 9.6 mg/dL (8.4-10.2) 10/18/18 03:12 0.20 mg/dL (0.1-1.2) 10/18/18 03:12 AST 19 units/L (5-40) 10/18/18 03:12 ALT 14 units/L (7-56) 10/18/18 03:12 55 units/L (35-129) 10/18/18 03:12 8.3 g/dL (6.3-8.2) H 10/18/18 03:12 4.8 g/dL (3.9-5) 10/18/18 03:12 1.4 % 10/18/18 03:12 49 units/L (13-60) 10/18/18 03:12 HCG, Qual Negative (Negative) 10/18/18 03:12 Yellow (Yellow) 10/18/18 03:30 Slightly-cloudy (Clear) 10/18/18 03:30 7.0 (5.0-7.0) 10/18/18 03:30 Ur Specific [place] 1.016 (1.003-1.030) 10/18/18 03:30 <15 mg/dl mg/dL (Negative) 10/18/18 03:30 Neg mg/dL (Negative) 10/18/18 03:30 Neg mg/dL (Negative) 10/18/18 03:30 Lg (Negative) 10/18/18 03:30 Neg (Negative) 10/18/18 03:30 Neg (Negative) 10/18/18 03:30 < 2.0 mg/dL (<2.0) 10/18/18 03:30 Ur Leukocyte Esterase Sm (Negative) 10/18/18 03:30 7.0 /HPF (0.0-6.0) H 10/18/18 03:30 > 182.0 /HPF (0.0-6.0) 10/18/18 03:30 U Epithel Cells (Auto) 10.0 /HPF (0-13.0) 10/18/18 03:30 Active Medications - Current Medications Current Medications: Generic Name Dose Route Start Last Admin Trade Name Freq PRN Reason Stop Dose Admin Acetaminophen 650 mg 10/18/18 06:24 Tylenol PO Q4H PRN Pain, Mild (1-3) Ceftriaxone Sodium 1 gm in 50 mls @ 100 mls/hr 10/18/18 10:00 10/18/18 09:39 Rocephin/Ns 1 Gm/50 Ml IV 100 mls/hr Q24HR ANA Administration Protocol Morphine Sulfate 2 mg 10/18/18 06:23 10/19/18 03:00 Morphine IV 2 mg Q3H PRN Administration Pain, Moderate (4-6) Ondansetron HCl 4 mg 10/18/18 06:24 10/18/18 13:07 Zofran IV 4 mg Q8H PRN Administration Nausea And Vomiting Nutrition/Malnutrition Assess - Dietary Evaluation Nutrition/Malnutrition Findings: Nutrition Notes Start: 10/18/18 15:01 Freq: Status: Active Protocol: Document 10/18/18 15:01 (Rec: 10/18/18 15:06 [email or web address]) Nutrition Notes Need for Assessment generated from: MD Order Initial or Follow up Assessment Other Pertinent Diagnosis Ascites, Endometriosis, Abdominal pain Current Diet Dietary supplements Labs/Tests Reviewed Pertinent Medications Zofran Height 5 ft 5 in Weight 50.3 kg Usual Body Weight 50.91 kg [place] Body Weight (kg) 56.81 BMI 18.4 Subjective/Other Information Consulted for poor oral intake . Screened for malnutrition and skin risk. No hossein score in record. Pt and pt mother in room at time of visit. Pt asleep so mother spoke on behalf of pt. 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 Stated that pt ate 50% of breakfast this morning. UBW was 112 lbs 1 year ago. No temporal or orbital wasting . Burn Absent Trauma Absent #1 Nutrition Diagnosis Inadequate oral intake Etiology abdominal pain As Evidenced by Signs and Symptoms pt mother statement that pt ate 50% of breakfast Is patient on ventilator? No Is Patient Ambulatory and/or Out of Bed Yes REE-([facility]-ambulatory/OOB) [ 1604.044 NUTR.MSJOOB] Calculation Used for Recommendations [facility] Additional Notes Protein Needs: 40-50g (0.8-1g/ kg) Fluid Needs: 1 ml/kcal Nutrition Intervention Change Diet Order: Order diet Add Supplement/Snack (indicate name/kcal Ensure Enlive [place] BID /protein ) Provides kCal: 700 Provides Protein (gm) 40 Goal #1 Order diet Goal #2 Meet at least 75% of calorie and protein needs via PO and ONS intakes Anticipated Discharge Needs: Cardiac diet Follow-Up By: 10/20/18 Additional Comments Follow for PO and ONS intakes
[2018-10-19] MEDS: ROCEPHIN/NS 1 GM/50 ML 1 GM/50 ML BAG IV SCH (12:50)
[2018-10-19] MEDS: PERCOCET 5/325 PO PRN ×4 (12:51→23:34)
[2018-10-19] MEDS ORDERED: HEPARIN SUB-Q SCH (14:00)
[2018-10-19] MEDS: HEPARIN SUB-Q SCH ×2 (14:56→21:51)
[2018-10-20] MEDS: PERCOCET 5/325 PO PRN ×4 (05:03→20:26)
[2018-10-20 05:10] LABS: Hematocrit 36.2 % (30.3-42.9); Hemoglobin 12.3 gm/dl (10.1-14.3); Mean Corpuscular HGB Conc 34 % (30-34); Mean Corpuscular Volume 91 fl (79-97); Platelet Count 316 K/mm3 (140-440); Red Blood Count 3.96 M/mm3 (3.65-5.03)
[2018-10-20 05:41] LABS: BUN/Creatinine Ratio 22; Blood Urea Nitrogen 13 mg/dL (7-17); Calcium 8.8 mg/dL (8.4-10.2); Hemolysis Index 0
[2018-10-20] MEDS: HEPARIN SUB-Q SCH ×3 (07:39→22:15)
[2018-10-20] MEDS ORDERED: ATIVAN IV ONE (09:00)
[2018-10-20 09:21] LABS: INR 0.97 (0.87-1.13)
--- NOTE | 2018-10-20 10:22 | Progress Note ---
Assessment and Plan Assessment and plan: Ascites due to endometriosis versus malignancy Paracentesis today. Follow-up cytology/pathology. Follow-up CA-125 Endometriosis patient was seeing Electronics Engineer as outpatient Ovarian mass poss peritoneal carcinomatosis Her Dental Office Assistant is Dr Almaraz at [facility], and she has an appointment with a Electronics Engineer Oncologist Dr Nixon also at 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 heparin subcut History Interval history: No new issues overnight. Hospitalist Physical - Constitutional Vitals: Temp Pulse Resp BP Pulse Ox 98.8 F 70 16 101/67 100 10/20/18 05:11 10/20/18 05:11 10/20/18 05:11 10/20/18 05:11 10/20/18 05:11 General appearance: Present: no acute distress, well-nourished - EENT Eyes: Present: PERRL, EOM intact ENT: hearing intact, clear oral mucosa, dentition normal - Neck Neck: Present: supple, normal ROM - Respiratory Respiratory effort: normal Respiratory: bilateral: CTA - Cardiovascular Rhythm: regular Heart Sounds: Present: S1 & S2. Absent: gallop, rub - Extremities Extremities: no ischemia, No edema, Full ROM - Abdominal General gastrointestinal: soft, non-distended, distended, normal bowel sounds - Integumentary Integumentary: Present: clear, warm, dry - Neurologic Neurologic: CNII-XII intact, moves all extremities Results - Labs CBC & Chem 7: 10/20/18 04:41 10/20/18 04:41 Labs: Laboratory Last Values WBC 3.1 K/mm3 (4.5-11.0) L 10/20/18 04:41 RBC 3.96 M/mm3 (3.65-5.03) 10/20/18 04:41 Hgb 12.3 gm/dl (10.1-14.3) 10/20/18 04:41 Hct 36.2 % (30.3-42.9) 10/20/18 04:41 MCV 91 fl (79-97) 10/20/18 04:41 MCH 31 pg (28-32) 10/20/18 04:41 MCHC 34 % (30-34) 10/20/18 04:41 RDW 14.0 % (13.2-15.2) 10/20/18 04:41 Plt Count 316 K/mm3 (140-440) 10/20/18 04:41 Lymph % (Auto) Trench Pipe Layer 10/18/18 03:12 Add Manual Diff Complete 10/18/18 03:12 Total Counted 100 10/18/18 03:12 Seg Neutrophils % Trench Pipe Layer 10/18/18 03:12 Seg Neuts % (Manual) 34.0 % (40.0-70.0) L 10/18/18 03:12 0 % 10/18/18 03:12 56.0 % (13.4-35.0) H 10/18/18 03:12 Reactive Lymphs % (Man) 0 % 10/18/18 03:12 7.0 % (0.0-7.3) 10/18/18 03:12 3.0 % (0.0-4.3) 10/18/18 03:12 0 % (0.0-1.8) 10/18/18 03:12 0 % 10/18/18 03:12 0 % 10/18/18 03:12 0 % 10/18/18 03:12 0 % 10/18/18 03:12 Nucleated RBC % Not Reportable 10/18/18 03:12 Seg Neutrophils # Man 1.4 K/mm3 (1.8-7.7) L 10/18/18 03:12 Band Neutrophils # 0.0 K/mm3 10/18/18 03:12 2.3 K/mm3 (1.2-5.4) 10/18/18 03:12 Abs React Lymphs (Man) 0.0 K/mm3 10/18/18 03:12 0.3 K/mm3 (0.0-0.8) 10/18/18 03:12 0.1 K/mm3 (0.0-0.4) 10/18/18 03:12 0.0 K/mm3 (0.0-0.1) 10/18/18 03:12 0.0 K/mm3 10/18/18 03:12 0.0 K/mm3 10/18/18 03:12 0.0 K/mm3 10/18/18 03:12 Blast Cells # 0.0 K/mm3 10/18/18 03:12 WBC Morphology Not Reportable 10/18/18 03:12 Hypersegmented Neuts Not Reportable 10/18/18 03:12 Hyposegmented Neuts Not Reportable 10/18/18 03:12 Hypogranular Neuts Not Reportable 10/18/18 03:12 Not Reportable 10/18/18 03:12 Not Reportable 10/18/18 03:12 Not Reportable 10/18/18 03:12 Not Reportable 10/18/18 03:12 Not Reportable 10/18/18 03:12 Not Reportable 10/18/18 03:12 Consistent w auto 10/18/18 03:12 Not Reportable 10/18/18 03:12 Plt Clumps, EDTA Not Reportable 10/18/18 03:12 1+ 10/18/18 03:12 Not Reportable 10/18/18 03:12 Not Reportable 10/18/18 03:12 Plt Morphology Comment Not Reportable 10/18/18 03:12 RBC Morphology Normal 10/18/18 03:12 Dimorphic RBCs Not Reportable 10/18/18 03:12 Not Reportable 10/18/18 03:12 Not Reportable 10/18/18 03:12 Not Reportable 10/18/18 03:12 Not Reportable 10/18/18 03:12 Not Reportable 10/18/18 03:12 Not Reportable 10/18/18 03:12 Not Reportable 10/18/18 03:12 Not Reportable 10/18/18 03:12 Not Reportable 10/18/18 03:12 Not Reportable 10/18/18 03:12 Not Reportable 10/18/18 03:12 Not Reportable 10/18/18 03:12 Not Reportable 10/18/18 03:12 Not Reportable 10/18/18 03:12 Not Reportable 10/18/18 03:12 Not Reportable 10/18/18 03:12 Not Reportable 10/18/18 03:12 Not Reportable 10/18/18 03:12 Not Reportable 10/18/18 03:12 Acanthocytes (Spur) Not Reportable 10/18/18 03:12 Rouleaux Not Reportable 10/18/18 03:12 Not Reportable 10/18/18 03:12 Not Reportable 10/18/18 03:12 Not Reportable 10/18/18 03:12 Not Reportable 10/18/18 03:12 Hem Pathologist Commnt No 10/18/18 03:12 PT 12.6 Sec. (12.2-14.9) 10/20/18 08:36 INR 0.97 (0.87-1.13) 10/20/18 08:36 Sodium 135 mmol/L (137-145) L 10/20/18 04:41 Potassium 4.0 mmol/L (3.6-5.0) 10/20/18 04:41 Chloride 100.0 mmol/L (98-107) 10/20/18 04:41 Carbon Dioxide 26 mmol/L (22-30) 10/20/18 04:41 13 mmol/L 10/20/18 04:41 BUN 13 mg/dL (7-17) 10/20/18 04:41 0.6 mg/dL (0.7-1.2) L 10/20/18 04:41 Estimated GFR > 60 ml/min 10/20/18 04:41 22 % 10/20/18 04:41 Glucose 79 mg/dL (65-100) 10/20/18 04:41 Calcium 8.8 mg/dL (8.4-10.2) 10/20/18 04:41 0.20 mg/dL (0.1-1.2) 10/18/18 03:12 AST 19 units/L (5-40) 10/18/18 03:12 ALT 14 units/L (7-56) 10/18/18 03:12 55 units/L (35-129) 10/18/18 03:12 8.3 g/dL (6.3-8.2) H 10/18/18 03:12 4.8 g/dL (3.9-5) 10/18/18 03:12 1.4 % 10/18/18 03:12 49 units/L (13-60) 10/18/18 03:12 HCG, Qual Negative (Negative) 10/18/18 03:12 Yellow (Yellow) 10/18/18 03:30 Slightly-cloudy (Clear) 10/18/18 03:30 7.0 (5.0-7.0) 10/18/18 03:30 Ur Specific [place] 1.016 (1.003-1.030) 10/18/18 03:30 <15 mg/dl mg/dL (Negative) 10/18/18 03:30 Neg mg/dL (Negative) 10/18/18 03:30 Neg mg/dL (Negative) 10/18/18 03:30 Lg (Negative) 10/18/18 03:30 Neg (Negative) 10/18/18 03:30 Neg (Negative) 10/18/18 03:30 < 2.0 mg/dL (<2.0) 10/18/18 03:30 Ur Leukocyte Esterase Sm (Negative) 10/18/18 03:30 7.0 /HPF (0.0-6.0) H 10/18/18 03:30 > 182.0 /HPF (0.0-6.0) 10/18/18 03:30 U Epithel Cells (Auto) 10.0 /HPF (0-13.0) 10/18/18 03:30 Active Medications - Current Medications Current Medications: Generic Name Dose Route Start Last Admin Trade Name Freq PRN Reason Stop Dose Admin Acetaminophen 650 mg 10/18/18 06:24 Tylenol PO Q4H PRN Pain, Mild (1-3) Heparin Sodium (Porcine) 5,000 unit 10/19/18 14:15 10/20/18 07:39 Heparin SUB-Q Not Given Q8HR ANA Ceftriaxone Sodium 1 gm in 50 mls @ 100 mls/hr 10/18/18 10:00 10/19/18 12:50 Rocephin/Ns 1 Gm/50 Ml IV 100 mls/hr Q24HR ANA Administration Protocol Ondansetron HCl 4 mg 10/18/18 06:24 10/18/18 13:07 Zofran IV 4 mg Q8H PRN Administration Nausea And Vomiting Oxycodone/Acetaminophen 1 tab 10/19/18 11:56 10/20/18 08:26 Percocet 5/325 PO 1 tab Q4H PRN Administration Pain, Moderate (4-6) Nutrition/Malnutrition Assess - Dietary Evaluation Nutrition/Malnutrition Findings: Nutrition Notes Start: 10/18/18 15:01 Freq: Status: Active Protocol: Document 10/18/18 15:01 (Rec: 10/18/18 15:06 [id number]) Nutrition Notes Need for Assessment generated from: MD Order Initial or Follow up Assessment Other Pertinent Diagnosis Ascites, Endometriosis, Abdominal pain Current Diet Dietary supplements Labs/Tests Reviewed Pertinent Medications Clarita Height 5 ft 5 in Weight 50.3 kg Usual Body Weight 50.91 kg [place] Body Weight (kg) 56.81 BMI 18.4 Subjective/Other Information Consulted for poor oral intake . Screened for malnutrition and skin risk. No hossein score in record. Pt and pt mother in room at time of visit. Pt asleep so mother spoke on behalf of pt. 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 Stated that pt ate 50% of breakfast this morning. UBW was 112 lbs 1 year ago. No temporal or orbital wasting . Burn Absent Trauma Absent #1 Nutrition Diagnosis Inadequate oral intake Etiology abdominal pain As Evidenced by Signs and Symptoms pt mother statement that pt ate 50% of breakfast Is patient on ventilator? No Is Patient Ambulatory and/or Out of Bed Yes REE-([facility]-ambulatory/OOB) [ 1604.044 NUTR.MSJOOB] Calculation Used for Recommendations [facility] Additional Notes Protein Needs: 40-50g (0.8-1g/ kg) Fluid Needs: 1 ml/kcal Nutrition Intervention Change Diet Order: Order diet Add Supplement/Snack (indicate name/kcal Ensure Enlive [place] BID /protein ) Provides kCal: 700 Provides Protein (gm) 40 Goal #1 Order diet Goal #2 Meet at least 75% of calorie and protein needs via PO and ONS intakes Anticipated Discharge Needs: Cardiac diet Follow-Up By: 10/20/18 Additional Comments Follow for PO and ONS intakes
--- NOTE | 2018-10-20 11:08 | Procedure Note ---
Date of procedure: 10/20/18 Pre-op diagnosis: ascites, endometriosis Post-op diagnosis: same Procedure: US paracentesis Findings: large ascites Anesthesia: local Surgeon: BIPIN VALENTINE Estimated blood loss: none Pathology: list (120cc) Specimen disposition: to lab Condition: stable Disposition: floor
[2018-10-20] MEDS: ROCEPHIN/NS 1 GM/50 ML 1 GM/50 ML BAG IV SCH (12:20)
--- NOTE | 2018-10-20 13:42 | Ultrasound Report ---
ULTRASOUND-GUIDED PARACENTESIS HISTORY: ASCITIS WITH ABDOMINAL PAIN. PROCEDURE: The risks (including but not limited to bleeding, infection, and bowel injury) and benefi ts were explained to the patient and informed consent was obtained. A time out procedure was perform ed. Ultrasound was used to evaluate the abdomen and locate the largest ascites fluid pocket. Once the sk in was marked, the procedure site was prepped and draped in the usual sterile fashion and lidocaine w as used for local anesthesia. A skin jenniffer was made and a 5 [place] centesis catheter was placed. The patient was monitored closely throughout the procedure, and a total of 8300 mL of chocolate colored fluid was aspirated. Samples were sent to the lab for further evaluation per the primary clinicians orders. The patient tolerated the procedure well with no complications. IMPRESSION: Successful ultrasound-guided paracentesis as described. Signer Name: Pratik Green Jr, MD Signed: 10/20/2018 1:38 PM Workstation Name: [id number]
[2018-10-20] MEDS ORDERED: MORPHINE IV ONE (15:58)
[2018-10-20 17:14] LABS: Total Cells Counted 100 /mm3
[2018-10-21] MEDS: PERCOCET 5/325 PO PRN ×2 (00:33→07:41)
[2018-10-21 07:02] VITALS: BP 97/57
[2018-10-21] MEDS: HEPARIN SUB-Q SCH (07:03)
--- NOTE | 2018-10-21 08:30 | Discharge Summary ---
Providers - Providers Date of Admission: 10/18/18 06:20 Date of discharge: 10/21/18 Attending physician: EMETERIO TRINH 10/18/18 06:21 Consult to Physician [CONS] Routine Comment: Consulting Provider: BIPIN JENSEN Physician Instructions: Reason For Exam: RECURRENT ASCITIS WITH OVARIAN MASS ON CT 10/18/18 10:55 Consult to Dietitian/Nutrition [CONS] Routine Physician Instructions: Reason For Exam: Reason for Consult: Poor oral intake Primary care physician: [facility] Hospitalization Reason for admission: abd/pelvic pain Condition: Stable Hospital course: Pt is a 27yo BF G0 LMP 10/14/18 with a past medical history of suspected endometriosis still undergoing diagnostic tests, who states that she also has had multiple paracenteses performed secondary to recurrent ascites. She presented with increased abdominal distention to the point where her umbilicus is more distended. She states the diagnosis of endometriosis was made upon an umbilical biopsy. Her Right Of Way Agent is Dr Almaraz at [facility], and she has an appointment with a Global Account Executive Oncologist Dr Nixon also at [facility] for next month. The patient was admitted with a diagnosis of abdominal/pelvic pain and ascites. CT scan of the abdomen and pelvis revealed massive amount of abdominal ascites unchanged focal masslike soft tissue thickening in the left periumbilical region suggestive for peritoneal carcinomatosis paracentesis with cytology was recommended patient also is felt to have probable left ovarian mass/soft tissue thickening within the left hemipelvis worrisome for ovarian neoplasm. The patient was seen by GAUGE AND INSTRUMENT INSPECTOR in consultation who reported that ascites may be malignant source and would typically see blood from endometriosis. Paracentesis was completed by radiology and pathology for cytological studies was obtained. GAUGE AND INSTRUMENT INSPECTOR recommended patient keep appointment with GAUGE AND INSTRUMENT INSPECTOR oncologist and a CA-125 was obtained. The patient now will be discharged home and is to follow-up with the cytology/pathology of the peritoneal fluid and have further follow-up with her previously scheduled GAUGE AND INSTRUMENT INSPECTOR oncologist appointment. Dedicated discharge time 32 minutes. Disposition: TO HOME OR SELFCARE Time spent for discharge: 32 - Discharge Diagnoses (1) Ascites Status: Acute Qualifiers: Ascites type: other type Qualified Code(s): R18.8 - Other ascites (2) Endometriosis Status: Acute Core Measure Documentation - Palliative Care Palliative Care/ Comfort Measures: Not Applicable - Core Measures Any of the following diagnoses?: none Exam - Constitutional Vitals: Temp Pulse Resp BP Pulse Ox 98.9 F 77 16 97/57 100 10/21/18 05:20 10/21/18 05:20 10/21/18 05:20 10/21/18 05:10/21/18 05:20 General appearance: Present: no acute distress, well-nourished - EENT Eyes: Present: PERRL ENT: hearing intact, clear oral mucosa - Neck Neck: Present: supple, normal ROM - Respiratory Respiratory effort: normal Respiratory: bilateral: CTA - Cardiovascular Heart Sounds: Present: S1 & S2. Absent: rub, click - Extremities Extremities: pulses symmetrical, No edema Peripheral Pulses: within normal limits - Abdominal General gastrointestinal: Present: soft, non-tender, non-distended, normal bowel sounds Female genitourinary: Present: normal - Integumentary Integumentary: Present: clear, warm, dry - Musculoskeletal Musculoskeletal: gait normal, strength equal bilaterally - Psychiatric Psychiatric: appropriate mood/affect, intact judgment & insight - Neurologic Neurologic: CNII-XII intact, moves all extremities Plan Activity: no restrictions Weight Bearing Status: Full Weight Bearing Diet: regular Follow up with: [facility] MD LUKE [Primary Care Provider] - 7 Days BIPIN JENSEN MD [Staff Physician] - 7 Days Prescriptions: Elagolix Sodium [Orilissa] 150 mg PO DAILY #30 tablet
[2018-10-21] MEDS: ROCEPHIN/NS 1 GM/50 ML 1 GM/50 ML BAG IV SCH (09:15)
[2018-10-21] MEDS ORDERED: PERCOCET 5/325 PO PRN (10:13)
== END 2018-10-21 12:15 | disposition home or self-care (01) | DRG 760 ==
LOC: SUATTDRO 00:27 → ED 00:27 → 3A 06:20
PROVIDERS: ADMIT Internal Medicine; ATTEND Hospitalist
PROC: 0W9G3ZZ Drainage of Peritoneal Cavity, Percutaneous Approach (ICD-10-PCS; principal; 2018-10-20)
DX: N80.9 Endometriosis, unspecified (principal); R18.8 Other ascites; N39.0 Urinary tract infection, site not specified; E46 Unspecified protein-calorie malnutrition; Z68.1 Body mass index [BMI] 19.9 or less, adult; N83.8 Other noninflammatory disorders of ovary, fallopian tube and broad ligament; Z79.899 Other long term (current) drug therapy; Z90.79 Acquired absence of other genital organ(s); Z90.721 Acquired absence of ovaries, unilateral
CPT/HCPCS: 36415; 49083; 74177; 80048; 80053; 81001; 82947; 83605; 83690; 84160; 84703; 85007; 85025; 85027; 85610; 86304; 87086; 87116; 88112; 88305; 88342; 89051; 96374; 96375; 96376; G0378; J0696; J1644; J1885; J2060; J2270; J2405; Q9967

== ENCOUNTER 2019-03-14 16:07 | Emergency (ER) | payer BC ==
[2019-03-14] MEDS ORDERED: SODIUM CHLORIDE 0.9% 500 ML 500 ML IV ONE (16:17)
[2019-03-14] MEDS ORDERED: ONDANSETRON 4 MG/2 ML INJ IV ONE (16:21)
[2019-03-14] MEDS ORDERED: MORPHINE 4 MG/1 ML INJ IV ONE ×3 (16:21→22:46)
--- NOTE | 2019-03-14 16:21 | Emergency Department Report ---
Blank Doc - Documentation Documentation: 28-year-old female that presents with genelized pain, fever, tachycardia status post appendectomy a few days ago. This initial assessment/diagnostic orders/clinical plan/treatment(s) is/are subject to change based on patient's health status, clinical progression and re-assessment by fellow clinical providers in the ED. Further treatment and workup at subsequent clinical providers discretion. Patient/guardians urged not to elope from the ED as their condition may be serious if not clinically assessed and managed. Initial orders include: 1- Patient sent to MAIN ED for further evaluation and treatment 2- code sepsis 3- labs
[2019-03-14 16:39] LABS: Hematocrit 37.7 % (30.3-42.9); Hemoglobin 12.5 gm/dl (10.1-14.3); Mean Corpuscular HGB Conc 33 % (30-34); Mean Corpuscular Volume 87 fl (79-97); Platelet Count 526 K/mm3 (140-440); Red Blood Count 4.35 M/mm3 (3.65-5.03); Red Cell Distribution Width 15.3 % (13.2-15.2)
[2019-03-14 16:51] LABS: INR 1.04 (0.87-1.13)
[2019-03-14 17:09] LABS: Alanine Aminotransferase 9 units/L (7-56); Albumin 3.5 g/dL (3.9-5); BUN/Creatinine Ratio 10; Blood Urea Nitrogen 5 mg/dL (7-17); Calcium 9.9 mg/dL (8.4-10.2); Hemolysis Index 0
[2019-03-14] MEDS: SODIUM CHLORIDE 0.9% 1000 ML IV SOLN IV ONE ×2 (17:22→20:51)
--- NOTE | 2019-03-14 18:01 | XRay Report ---
ABDOMEN 4 VIEW(S) INDICATION / CLINICAL INFORMATION: Postop pain secondary to abdominal surgery Friday from appendectomy. COMPARISON: None available. FINDINGS: TUBES / LINES: None. BOWEL GAS PATTERN: Moderate gaseous distention of large and small bowel characteristic for ileus. FREE AIR / EXTRALUMINAL GAS: Very large amount of free air, greater than to be expected from surgery 4 days ago. ADDITIONAL FINDINGS: No significant additional findings. IMPRESSION: 1. Large pneumoperitoneum, greater than expected for recent surgery. CT abdomen may be performed for further evaluation as warranted clinically. 2. Postop ileus Signer Name: Zen Kingston MD Signed: 03/14/2019 5:57 PM Workstation Name: [id number]
[2019-03-14 19:11] LABS: Anisocytosis 1+; Basophils % (Manual) 0 % (0.0-1.8); Platelet Estimate Consistent w Auto; Total Cells Counted 100; Toxic Granulation Few
[2019-03-14] MEDS ORDERED: PIPERACIL/TAZOBACTA 4.5/NS 100 4.5 GM/100 ML VIAL IV ONE (20:34)
--- NOTE | 2019-03-14 20:44 | Emergency Department Report ---
ED Abdominal Pain HPI - General Chief Complaint: Fever Stated Complaint: POST OP SURGERY COMPLICATION/FEVER Time Seen by Provider: 03/14/19 16:17 Source: family Mode of arrival: Wheelchair Limitations: No Limitations - History of Present Illness Initial Comments: Ms. Davis is a 28 yo female with hx of endometriosis who presents with abdominal and back pain, fever, vomiting since surgery on Friday 4 days ago at [facility]. She has had intermittent fever since the surgery. She was stated that she had surgery on her navel and her appendix was removed due to invasive surgery. She was discharged on yesterday. +productive cough with green sputum no dysuria. Severe 10/10 pain. Worse with movement. Has a very difficult time changing positions. MD Complaint: abdominal pain -: Gradual, days(s) (4) Location: diffuse Radiation: back Severity: severe Severity scale (0 -10): 10 Quality: aching, sharp Consistency: constant Improves With: nothing Worsens With: movement Associated Symptoms: other (fever) - Related Data Previous Rx's Medication Instructions Recorded Last Taken Type Ondansetron [Zofran ODT TAB] 4 mg PO Q8HR PRN #10 tab.rapdis 10/11/18 Unknown Rx oxyCODONE /ACETAMINOPHEN [Percocet 1 tab PO Q6HR PRN #10 tablet 10/11/18 Unknown Rx 5/325 mg] Elagolix Sodium [Orilissa] 150 mg PO DAILY #30 tablet 10/18/18 Unknown Rx oxyCODONE /ACETAMINOPHEN [Percocet 1 tab PO Q6HR PRN #10 tablet 10/21/18 Unknown Rx 5/325] Allergies Allergy/AdvReac Type Severity Reaction Status Date / Time No Known Allergies Allergy Verified 03/12/18 12:46 ED Review of Systems ROS: Stated complaint: POST OP SURGERY COMPLICATION/FEVER Other details as noted in HPI Comment: All other systems reviewed and negative Constitutional: fever, malaise Gastrointestinal: abdominal pain ED Past Medical Hx - Past Medical History Previous Medical History?: Yes Additional medical history: endometriosis,umbilical hernia, Ascites - Surgical History Past Surgical History?: Yes Additional Surgical History: right ovary and fallopian tube, parasenthesis - Social History Smoking Status: Never Smoker Substance Use Type: None - Medications Home Medications: Home Medications Medication Instructions Recorded Confirmed Last Taken Type Ondansetron [Zofran ODT TAB] 4 mg PO Q8HR PRN #10 tab.rapdis 10/11/18 10/18/18 Unknown Rx oxyCODONE /ACETAMINOPHEN [Percocet 1 tab PO Q6HR PRN #10 tablet 10/11/18 10/18/18 Unknown Rx 5/325 mg] Elagolix Sodium [Orilissa] 150 mg PO DAILY #30 tablet 10/18/18 Unknown Rx oxyCODONE /ACETAMINOPHEN [Percocet 1 tab PO Q6HR PRN #10 tablet 10/21/18 Unknown Rx 5/325] ED Physical Exam - General Limitations: No Limitations General appearance: alert, other (in severe pain) - Head Head exam: Present: atraumatic, normocephalic - Eye Eye exam: Present: normal appearance - ENT ENT exam: Present: mucous membranes moist - Neck Neck exam: Present: normal inspection, full ROM - Respiratory Respiratory exam: Present: normal lung sounds bilaterally. Absent: respiratory distress, wheezes, rales, rhonchi - Cardiovascular Cardiovascular Exam: Present: normal rhythm, tachycardia, normal heart sounds. Absent: systolic murmur, diastolic murmur, rubs, gallop - GI/Abdominal GI/Abdominal exam: Present: soft, distended, tenderness, guarding, rebound, diminished bowel sounds, other (central surgical vertical wound incision no erythema no purulence) - Extremities Exam Extremities exam: Present: normal inspection - Neurological Exam Neurological exam: Present: alert, oriented X3 - Psychiatric Psychiatric exam: Present: normal affect, normal mood - Skin Skin exam: Present: warm, dry, intact, normal color. Absent: rash ED Course Vital Signs 03/14/19 16:19 Temperature 100.2 F H Pulse Rate 146 H Respiratory 26 H Rate Blood Pressure 121/79 O2 Sat by Pulse 98 Oximetry ED Medical Decision Making - Lab Data Result diagrams: 03/14/19 16:21 03/14/19 16:21 Laboratory Results - last 24 hr 03/14/19 03/14/19 03/14/19 16:21 16:21 16:21 WBC 15.4 H RBC 4.35 Hgb 12.5 Hct 37.7 MCV 87 MCH 29 MCHC 33 RDW 15.3 H Plt Count 526 H Add Manual Diff Complete Total Counted 100 Seg Neutrophils % Auxiliary Plant Operator Seg Neuts % (Manual) 90.0 H Band Neutrophils % 0 Lymphocytes % (Manual) 4.0 L Reactive Lymphs % (Man) 0 Monocytes % (Manual) 5.0 Eosinophils % (Manual) 1.0 Basophils % (Manual) 0 Metamyelocytes % 0 Myelocytes % 0 Promyelocytes % 0 Blast Cells % 0 Nucleated RBC % Not Reportable Seg Neutrophils # Man 13.9 H Band Neutrophils # 0.0 Lymphocytes # (Manual) 0.6 L Abs React Lymphs (Man) 0.0 Monocytes # (Manual) 0.8 Eosinophils # (Manual) 0.2 Basophils # (Manual) 0.0 Metamyelocytes # 0.0 Myelocytes # 0.0 Promyelocytes # 0.0 Blast Cells # 0.0 WBC Morphology Not Reportable Hypersegmented Neuts Not Reportable Hyposegmented Neuts Not Reportable Hypogranular Neuts Not Reportable Smudge Cells Not Reportable Toxic Granulation Few Toxic Vacuolation Not Reportable Dohle Bodies Not Reportable Pelger-Huet Anomaly Not Reportable Jorge Luis Rods Not Reportable Platelet Estimate Consistent w auto Clumped Platelets Not Reportable Plt Clumps, EDTA Not Reportable Large Platelets Not Reportable Giant Platelets Not Reportable Platelet Satelliting Not Reportable Plt Morphology Comment Not Reportable RBC Morphology Not Reportable Dimorphic RBCs Not Reportable Polychromasia Not Reportable Hypochromasia Not Reportable Poikilocytosis Not Reportable Anisocytosis 1+ Microcytosis Not Reportable Macrocytosis Not Reportable Spherocytes Not Reportable Pappenheimer Bodies Not Reportable Sickle Cells Not Reportable Target Cells Not Reportable Tear Drop Cells Not Reportable Ovalocytes Not Reportable Helmet Cells Not Reportable [place] Bodies Not Reportable [place] Rings Not Reportable [place] Cells Not Reportable Bite Cells Not Reportable Crenated Cell Not Reportable Elliptocytes Not Reportable Acanthocytes (Spur) Not Reportable Rouleaux Not Reportable Hemoglobin C Crystals Not Reportable Schistocytes Not Reportable Malaria parasites Not Reportable [place] Bodies Not Reportable Hem Pathologist Commnt No PT 13.7 INR 1.04 VBG pH Sodium 134 L Potassium 3.5 L Chloride 96.5 L Carbon Dioxide 21 L Anion Gap 20 BUN 5 L Creatinine 0.5 L Estimated GFR > 60 BUN/Creatinine Ratio 10 Glucose 105 H Lactic Acid Calcium 9.9 Total Bilirubin 0.40 AST 13 ALT 9 Alkaline Phosphatase 53 Total Protein 7.6 Albumin 3.5 L Albumin/Globulin Ratio 0.9 HCG, Qual 03/14/19 03/14/19 03/14/19 16:21 16:21 16:31 WBC RBC Hgb Hct MCV MCH MCHC RDW Plt Count Add Manual Diff Total Counted Seg Neutrophils % Seg Neuts % (Manual) Band Neutrophils % Lymphocytes % (Manual) Reactive Lymphs % (Man) Monocytes % (Manual) Eosinophils % (Manual) Basophils % (Manual) Metamyelocytes % Myelocytes % Promyelocytes % Blast Cells % Nucleated RBC % Seg Neutrophils # Man Band Neutrophils # Lymphocytes # (Manual) Abs React Lymphs (Man) Monocytes # (Manual) Eosinophils # (Manual) Basophils # (Manual) Metamyelocytes # Myelocytes # Promyelocytes # Blast Cells # WBC Morphology Hypersegmented Neuts Hyposegmented Neuts Hypogranular Neuts Smudge Cells Toxic Granulation Toxic Vacuolation Dohle Bodies Pelger-Huet Anomaly Jorge Luis Rods Platelet Estimate Clumped Platelets Plt Clumps, EDTA Large Platelets Giant Platelets Platelet Satelliting Plt Morphology Comment RBC Morphology Dimorphic RBCs Polychromasia Hypochromasia Poikilocytosis Anisocytosis Microcytosis Macrocytosis Spherocytes Pappenheimer Bodies Sickle Cells Target Cells Tear Drop Cells Ovalocytes Helmet Cells Peters[place] Bodies [place] Rings [place] Cells Bite Cells Crenated Cell Elliptocytes Acanthocytes (Spur) Rouleaux Hemoglobin C Crystals Schistocytes Malaria parasites [place] Bodies Hem Pathologist Commnt PT INR VBG pH 7.418 Sodium Potassium Chloride Carbon Dioxide Anion Gap BUN Creatinine Estimated GFR BUN/Creatinine Ratio Glucose Lactic Acid 0.90 Calcium Total Bilirubin AST ALT Alkaline Phosphatase Total Protein Albumin Albumin/Globulin Ratio HCG, Qual Negative 03/14/19 19:11 WBC RBC Hgb Hct MCV MCH MCHC RDW Plt Count Add Manual Diff Total Counted Seg Neutrophils % Seg Neuts % (Manual) Band Neutrophils % Lymphocytes % (Manual) Reactive Lymphs % (Man) Monocytes % (Manual) Eosinophils % (Manual) Basophils % (Manual) Metamyelocytes % Myelocytes % Promyelocytes % Blast Cells % Nucleated RBC % Seg Neutrophils # Man Band Neutrophils # Lymphocytes # (Manual) Abs React Lymphs (Man) Monocytes # (Manual) Eosinophils # (Manual) Basophils # (Manual) Metamyelocytes # Myelocytes # Promyelocytes # Blast Cells # WBC Morphology Hypersegmented Neuts Hyposegmented Neuts Hypogranular Neuts Smudge Cells Toxic Granulation Toxic Vacuolation Dohle Bodies Pelger-Huet Anomaly Jorge Luis Rods Platelet Estimate Clumped Platelets Plt Clumps, EDTA Large Platelets Giant Platelets Platelet Satelliting Plt Morphology Comment RBC Morphology Dimorphic RBCs Polychromasia Hypochromasia Poikilocytosis Anisocytosis Microcytosis Macrocytosis Spherocytes Pappenheimer Bodies Sickle Cells Target Cells Tear Drop Cells Ovalocytes Helmet Cells [place] Bodies [place] Rings [place] Cells Bite Cells Crenated Cell Elliptocytes Acanthocytes (Spur) Rouleaux Hemoglobin C Crystals Schistocytes Malaria parasites [place] Bodies Hem Pathologist Commnt PT INR VBG pH Sodium Potassium Chloride Carbon Dioxide Anion Gap BUN Creatinine Estimated GFR BUN/Creatinine Ratio Glucose Lactic Acid 1.50 Calcium Total Bilirubin AST ALT Alkaline Phosphatase Total Protein Albumin Albumin/Globulin Ratio HCG, Qual - Radiology Data Radiology results: report reviewed, image reviewed Large pneumoperitoneum - Medical Decision Making Ms. Davis presents with abdominal pain distention exquisite tenderness on exam. Large pneumoperitoneum seen on abdominal radiographs. Concern for bowel perforation, acute peritonitis. According to her report she has had fever since her surgery on Friday. Upon review of the abdominal radiograph images I spoke with our surgeon Dr. Smith. She recommended resuscitation and to contact the surgeon who performed the surgery for further information and management instructions. I spoke with Dr. Nixon operating surgeon social work msw at [facility]. He accepted the patient transferred to [facility]. Critical care attestation.: If time is entered above; I have spent that time in minutes in the direct care of this critically ill patient, excluding procedure time. ED Disposition Clinical Impression: Bowel perforation, SIRS (systemic inflammatory response syndrome), Postoperative fever Disposition: [id number] ANOTHER TYPE HLTHCARE Is pt being admited?: No Does the pt Need Aspirin: No Condition: Stable
[2019-03-14] MEDS ORDERED: SODIUM CHLORIDE 0.9% 1000 ML 1,000 ML ONE (20:54)
[2019-03-14 21:01] LABS: Bilirubin,Urine NEG (Negative); Blood,Urine SM (Negative); Color,Urine Yellow (Yellow); Mucus,Urine FEW /HPF; Protein,Urine <15 mg/dL mg/dL (Negative); Urobilinogen,Urine < 2.0 mg/dL (<2.0)
--- NOTE | 2019-03-14 21:15 | Event Note ---
Date: 03/14/[address] Vergara. Pt status post open surgery for endometriosis at [facility] 4 days ago. During the surgery, she also underwent appendectomy. Presented with severe abdominal pain, Temp of 100.2, tachycardia. WBC elevated. Per patient, she was having fevers post op. KUB shows large pneumoperitoneum. BP is stable. Pt currently getting abx and IVF, CT scan pending. Recommend immediate transfer to [facility] where patient had surgery just [address] Vergara who will get in touch with operating surgeon.
[2019-03-14 23:07] VITALS: BP 134/88
== END 2019-03-14 23:30 | disposition other institution (70) ==
LOC: ED 16:07
DX: K63.1 Perforation of intestine (nontraumatic) (principal); R65.10 Systemic inflammatory response syndrome (SIRS) of non-infectious origin without acute organ dysfunction; R50.82 Postprocedural fever; Z98.890 Other specified postprocedural states; Z79.899 Other long term (current) drug therapy
CPT/HCPCS: 36415; 74022; 80053; 81001; 82140; 82805; 84703; 85007; 85025; 85610; 87040; 87086; 96365; 96375; 96376; 99284; J2270; J2405; J2543; J7030